=== PATIENT | male | born 1970 | race African-American/Black ===

== ENCOUNTER 2023-05-29 07:39 | Emergency (ER) | payer OTHER ==
[~2023-05-29] VITALS: Ht 182.9 cm; Wt 85.3 kg
[2023-05-29 08:26] VITALS: BP_SYST 137; PULSE 75; RESP 16; TEMP 98.7; O2SAT 98
[2023-05-29] MEDS ORDERED: IBUPROFEN 600 MG TABLET PO ONE (10:00)
[2023-05-29 10:07] VITALS: BP_SYST 137; PULSE 75; RESP 16; TEMP 98.7; O2SAT 98
== END 2023-05-29 10:00 | disposition home or self-care (01) ==
LOC: SED 07:39
DX: S01.311A Laceration without foreign body of right ear, initial encounter (principal); E11.9 Type 2 diabetes mellitus without complications; I10 Essential (primary) hypertension; E78.5 Hyperlipidemia, unspecified; Z79.899 Other long term (current) drug therapy; X58.XXXA Exposure to other specified factors, initial encounter; Y93.89 Activity, other specified; Y92.89 Other specified places as the place of occurrence of the external cause; Y99.8 Other external cause status
CPT/HCPCS: 82948; 99282